=== PATIENT | male | born 1940 | race Caucasian/White ===

== ENCOUNTER 2022-01-26 15:10 | Emergency (ER) | payer MEDICARE, OTHER ==
[2022-01-26] MEDS ORDERED: Dexamethasone 10 MG/ML VIAL ONE (15:31)
== END 2022-01-26 16:03 | disposition home or self-care (01) ==
LOC: BURERS 15:10
DX: J02.9 Acute pharyngitis, unspecified (principal); E78.5 Hyperlipidemia, unspecified; I10 Essential (primary) hypertension; I25.10 Atherosclerotic heart disease of native coronary artery without angina pectoris
CPT/HCPCS: 87081; 87430; 99283; J1100